=== PATIENT | female | born 1985 | race Caucasian/White ===

== ENCOUNTER 2021-07-10 07:34 | Emergency (ER) | payer SELFPAY ==
[~2021-07-10] VITALS: Ht 165.1 cm; Wt 65.0 kg
[2021-07-10 07:38] VITALS: BP 142/92
== END 2021-07-10 07:57 | disposition home or self-care (01) ==
LOC: ER 07:42
DX: R68.89 Other general symptoms and signs (principal); Z59.00 Homelessness unspecified; F20.9 Schizophrenia, unspecified; Z87.891 Personal history of nicotine dependence; F15.10 Other stimulant abuse, uncomplicated
CPT/HCPCS: 99283